=== PATIENT | female | born 1955 | race Caucasian/White ===

== ENCOUNTER 2016-07-27 00:10 | Emergency (ER) | payer BC ==
[2016-07-27 00:15] VITALS: BP 147/97; PULSE 95; TEMP 97.6; BMI 25.9
--- NOTE | 2016-07-27 00:23 | PDOC ---
History of Present Illness - General Chief Complaint: Chest Pain Stated Complaint: CHEST PAIN Time Seen by Provider: 07/27/16 00:18 History Source: Patient Exam Limitations: No Limitations - History of Present Illness Initial Comments: 07/27/16 00:18 60 Y F NO PMHX WOKE UP AN HOUR AGO W/ RACING HEART, CHEST TIGHTNESS (MILD) DIAPHORESIS, AND RAPID BREATHING. SYMPTOMS LASTED LESS THAN 20 MIN AND NOW IS ASYMPTOMATIC. DOES NOT RECALL NIGHTMARES. IN ED, IN NAD. SIMILAR EPISODE 5 Y AGO FOR WHICH EXTENSIVE C/V W/U WAS DONE RESULTING IN NORMAL. Past History - Past Medical History Allergies/Adverse Reactions: Allergies Allergy/AdvReac Type Severity Reaction Status Date / Time bee pollen Allergy Verified 07/27/16 00:12 ciprofloxacin [From Cipro] Allergy Verified 07/27/16 00:12 ciprofloxacin HCl Allergy Verified 07/27/16 00:12 [From Cipro] Penicillins Allergy Verified 07/27/16 00:12 Home Medications: Ambulatory Orders NK [No Known Home Medication] 07/27/16 Other medical history: DENIES - Psycho/Social/Smoking Cessation Hx Anxiety: No Suicidal Ideation: No Smoking History: Never smoked Review of Systems - Review of Systems Able to Perform ROS?: Yes Is the patient limited [place] proficient: No Constitutional: No: Symptoms Reported HEENTM: No: Symptoms Reported Respiratory: Yes: Symptoms reported, See HPI Cardiac (ROS): Yes: Symptoms Reported, See HPI ABD/GI: No: Symptoms Reported Musculoskeletal: No: Symptoms Reported All Other Systems: Reviewed and Negative *Physical Exam - Vital Signs Last Vital Signs Temp Pulse Resp BP Pulse Ox 97.6 F 95 H 16 147/97 100 07/27/16 00:13 07/27/16 00:13 07/27/16 00:13 07/27/16 00:13 07/27/16 00:13 - Physical Exam General Appearance: Yes: Nourished, Appropriately Dressed. No: Apparent Distress HEENT: positive: Normal ENT Inspection Neck: positive: Supple. negative: Tender, Carotid bruit Respiratory/Chest: positive: Lungs Clear, Normal Breath Sounds. negative: Respiratory Distress Cardiovascular: positive: Regular Rhythm, Regular Rate Musculoskeletal: positive: Normal Inspection Extremity: positive: Normal Capillary Refill Integumentary: positive: Normal Color Neurologic: positive: Fully Oriented, Alert, Normal Mood/Affect, Normal Response , Motor Strength 08/31 Medical Decision Making - Medical Decision Making 07/27/16 00:21 MOST LIKELY PANIC ATTACK NORMAL EKG PAIN FREE WILL FOLLOW UP W/ HER PMD *DC/Admit/Observation/Transfer Diagnosis at time of Disposition: Panic attack - Discharge Dispostion Disposition: HOME Condition at time of disposition: Improved - Patient Instructions Additional Instructions: MAKE DINNER YOUR LIGHTEST MEAL OF THE DAY PLENTY OF FLUIDS REGULAR ACTIVITY SEE YOUR DOCTOR ON SATURDAY (CALL TOMORROW) RETURN IF RECURRENCE OR NEW SYMPTOMS
--- NOTE | 2016-07-27 11:33 | EKG ---
Test Reason : Blood Pressure : / mmHG Vent. Rate : 083 BPM Atrial Rate : 083 BPM P-R Int : 146 ms QRS Dur : 092 ms QT Int : 374 ms P-R-T Axes : 057 026 051 degrees QTc Int : 439 ms NORMAL SINUS RHYTHM INCOMPLETE RBBB NO PREVIOUS ECGS AVAILABLE Confirmed by ELIANA ENGLAND MD ([id number]) on 07/27/2016 11:33:41 AM Referred By: MD SALEEM Confirmed By:ELIANA ENGLAND MD
== END 2016-07-27 00:29 | disposition home or self-care (01) ==
LOC: FER 00:10
DX: F41.0 Panic disorder [episodic paroxysmal anxiety] (principal)
CPT/HCPCS: 93005; 99282-25

== ENCOUNTER 2020-03-17 10:42 | Emergency (ER) | payer BC ==
[2020-03-17 10:52] VITALS: BP 155/92; PULSE 99; TEMP 99; BMI 25.4
[2020-03-17] MEDS ORDERED: DIPHTH,PERTUSS(ACELL),TET 0.5 ML DISP.SYRIN IM ONE ×2 (11:32→11:36)
[2020-03-17] MEDS ORDERED: SULFAMETHOXAZOLE/TRIMETHOPRIM 800MG/160MG D.S. TABLET PO ONE (11:33)
[2020-03-17] MEDS ORDERED: SULFAMETHOXAZOLE/TRIMETHOPRIM 800MG/160MG D.S. TABLET ONE (11:36)
== END 2020-03-17 11:54 | disposition home or self-care (01) ==
LOC: FER 10:42
PROC: 3E0234Z Introduction of Serum, Toxoid and Vaccine into Muscle, Percutaneous Approach (ICD-10-PCS; principal; 2020-03-17)
DX: L03.012 Cellulitis of left finger (principal)
CPT/HCPCS: 90715; 99284-25

== ENCOUNTER 2022-10-30 16:59 | Emergency (ER) | payer BC, OTHER ==
[2022-10-30 17:22] VITALS: BP 149/81; PULSE 98; RESP 18; TEMP 98.8; BMI 24.7
== END 2022-10-30 17:33 | disposition home or self-care (01) ==
LOC: FER 16:59
PROC: 0H96XZZ Drainage of Back Skin, External Approach (ICD-10-PCS; principal; 2022-10-30)
DX: L72.3 Sebaceous cyst (principal); B99.9 Unspecified infectious disease
CPT/HCPCS: 99283-25